=== PATIENT | female | born 1965 | race African-American/Black ===

== ENCOUNTER 2021-03-17 08:14 | Emergency (ER) | payer OTHER ==
[2021-03-17 08:36] VITALS: BP 134/84; PULSE 89; TEMP 97.9; BMI 26.6
[2021-03-17] MEDS ORDERED: CYCLOBENZAPRINE HCL 5 MG TABLET PO ONE (08:44)
[2021-03-17] MEDS ORDERED: ACETAMINOPHEN 325 MG TABLET (FP) PO ONE (08:44)
[2021-03-17] MEDS ORDERED: KETOROLAC TROMETHAMINE 30 MG/1 ML VIAL IM ONE (08:59)
[2021-03-17] MEDS ORDERED: LIDOCAINE 5% TOPICAL PATCH TP ONE (09:00)
[2021-03-17] MEDS ORDERED: ACETAMINOPHEN 325 MG TABLET (FP) ONE (09:14)
[2021-03-17] MEDS ORDERED: CYCLOBENZAPRINE HCL 10 MG TABLET (FP) ONE (09:14)
[2021-03-17] MEDS ORDERED: LIDOCAINE 5% TOPICAL PATCH ONE (09:24)
[2021-03-17] MEDS ORDERED: KETOROLAC TROMETHAMINE 30 MG/1 ML VIAL ONE (09:25)
[2021-03-17 13:13] LABS: URINE APPEARANCE CLEAR; URINE BILIRUBIN NEGATIVE (NEGATIVE); URINE COLOR YELLOW; URINE GLUCOSE (UA) NEGATIVE (NEGATIVE); URINE KETONE NEGATIVE (NEGATIVE)
[2021-03-17 13:14] LABS: PH,URINE 6.5 (5.0-8.0); URINE LEUK ESTERASE TRACE (NEGATIVE); URINE NITRITE NEGATIVE (NEGATIVE); URINE PROTEIN NEGATIVE (NEGATIVE)
[2021-03-17 13:58] LABS: EPI CELLS FEW /HPF; URINE WBC 2 (NEGATIVE)
[2021-03-17] MEDS ORDERED: LIDOCAINE PATCH REMOVAL MC SCH (22:00)
== END 2021-03-17 13:58 | disposition home or self-care (01) ==
LOC: JER 08:14
PROC: 3E0233Z Introduction of Anti-inflammatory into Muscle, Percutaneous Approach (ICD-10-PCS; principal; 2021-03-17)
DX: M54.50 Low back pain, unspecified (principal); G89.29 Other chronic pain
CPT/HCPCS: 71046-TC-FY; 72125-TC; 72128-TC; 81003; 99285-25; C9803; U0003; U0005